=== PATIENT | male | born 1930 | race Caucasian/White ===

== ENCOUNTER → 2016-08-16 12:41 | Emergency (ER) | payer MEDICARE, BC ==
--- NOTE | ~2016-08-16 | CT71 ---
[facility] A Service [facility] RADIOLOGY TEXT RESULTS PATIENT: JUDSON ELIZALDE LOCATION: [facility] : [birth year] UNIT #: [id number] AGE: [address]: Narinder Castro SEX: M ORDER DR: [id number] [address] [address] [id number] E MR#: [id number] Acc #: [id number] NAME: JUDSON ELIZALDE : 1930 SEX: M STUDY DATE/TIME: 08/16/2016 11:46 UNIT: [id number] ROOM: STUDY DESCRIPTION: CT Head Wo Contrast Attending Physician: Narinder Castro Ordering Physician: [facility] MEDICAL IMAGING REPORT This report is preliminary unless electronic signature is present EXAM CT head without contrast 08/16/2016 INDICATIONS Right ear pain for [address] head without contrast. This CT exam was performed with one or more of the following radiation dose reduction techniques: automatic exposure control, adjustment of mA and/or kV according to patient size, and iterative reconstruction. COMPARISON CT head dated 03/04/2015. FINDINGS There is no acute intracranial hemorrhage, mass lesion, or acute infarct. There is generalized global cerebral atrophy and chronic small vessel changes. Ventricles and basilar cisterns are unchanged. There is a septum cavum pellucidum. No extraaxial collections. Visualized paranasal sinuses are clear. No mastoid effusion. IMPRESSION 1. No acute findings. 2. Generalized atrophy and chronic small vessel changes. Dictated by... Jay Benson M.D. THIS IS AN ELECTRONICALLY VERIFIED REPORT Jay Benson M.D. at 08/17/2016 8:19 AM [facility] A Service [facility] RADIOLOGY TEXT RESULTS PATIENT: JUDSON ELIZALDE LOCATION: [facility] : [birth year] UNIT #: [id number] AGE: [address]: Narinder Castro SEX: M ORDER DR: Josy TD: 08/16/2016 17:47 JOB #: [id number] MEDICAL IMAGING REPORT COPY
[~2016-08-16 12:41] MED LIST: ACTOS; AMIODARONE; APRESOLINE; CARVEDILOL25 MG PO; COREG; COREG PO; COUMADIN; COUMADIN PO; FINASTERIDE5 M1 PO; GABAPENTIN300 MG PO; GLYBURIDE MICRON3 MG PO; GLYNASE; HYDROCODON-ACE1 EAC5 PO; HYDROCODONE-APA1 T41 PO; IRON PO; KCL PO; LASIX PO; LEVAQUIN PO; LIPITOR; LISINOPRIL; LISINOPRIL30 MG PO; METAMUCIL1 PKT PO; MOBIC PO; NEURONTIN PO; PANTOPRAZOLE SO40 MG PO; PHENERGAN25 MG PO; PRILOSEC PO; PRINIVIL40 MG PO; PROSCAR5 MG; REFRESH EYE DRO50 E1 OP; RESTASIS32 EA OP; VICODIN 5/500 T1 TAB PO; WARFARIN SODIUM6 M1 PO; ZANTAC; ZOFRANODT PO; ZOLOFT PO; ZYLOPRIM; [UNRECOGNIZED DRUG - OTHER]
== END | disposition home or self-care (01) ==
LOC: CFTX 12:41
DX: H92.01 Otalgia, right ear (principal); I11.0 Hypertensive heart disease with heart failure; I50.9 Heart failure, unspecified; E11.9 Type 2 diabetes mellitus without complications; F03.90 Unspecified dementia, unspecified severity, without behavioral disturbance, psychotic disturbance, mood disturbance, and anxiety; Z86.79 Personal history of other diseases of the circulatory system
CPT/HCPCS: 70450; 99284

== ENCOUNTER 2016-09-06 10:36 | Emergency (ER) | payer MEDICARE, BC ==
[2016-09-06 10:50] LABS: PARTIAL THROMBOPLASTIN TIME 43.1 SECONDS (23.5-31.3); PROTHROMBIN TIME (PATIENT) 32.8 SECONDS (9.6-11.5)
== END 2016-09-06 12:45 | disposition home or self-care (01) ==
LOC: CED 10:36
PROVIDERS: Emergency Medicine
DX: H66.91 Otitis media, unspecified, right ear (principal)
CPT/HCPCS: 36415; 84484; 85610; 85730; 99283

== ENCOUNTER 2016-10-05 20:16 | Emergency (ER) | payer MEDICARE, BC ==
--- NOTE | ~2016-10-05 | CR72 ---
[facility] A Service of [facility] RADIOLOGY TEXT RESULTS PATIENT: JUDSON ELIZALDE LOCATION: [facility] : [birth year] UNIT #: [id number] AGE: [address]: Jeff Brody MD SEX: M ORDER DR: [id number] [facility] [address] [place], [place] [address] [id number] E MR#: [id number] #: [id number] NAME: JUDSON ELIZALDE. : 1930 SEX: M STUDY DATE/TIME: 10/05/2016 19:49 UNIT: HANH ROOM: STUDY DESCRIPTION: CR Chest Single View Portable Attending Physician: Jeff Brody M.D. Ordering Physician: Jeff Brody M.D. MEDICAL IMAGING REPORT This report is preliminary unless electronic signature is present EXAM Portable chest x-ray 10/05/2016 HISTORY Shortness of air. TECHNIQUE AP radiograph of the chest is presented. COMPARISON STUDIES 06/06/2014. FINDINGS Dual-lead cardiac pacemaker unchanged. Stable cardiac enlargement. Lung volumes low. Central bronchovascular crowding. Given the low lung volumes, the central pulmonary vessels are mildly prominent suggesting some degree of vascular congestion. There is a small left pleural effusion. Patchy and band-like airspace disease in the left mid to lower lung zone is nonspecific and may include components of atelectasis and pneumonia. Followup to resolution is recommended. There is no right effusion seen. No pneumothorax. Stable slight elevation of the left hemidiaphragm. Dictated by... Mikel Chua M.D. THIS IS AN ELECTRONICALLY VERIFIED REPORT Mikel Chua M.D. at 10/06/2016 11:06 PM CHINEDU/lalita TD: 10/05/2016 22:55 [facility] A Service [facility] RADIOLOGY TEXT RESULTS PATIENT: JUDSON ELIZALDE LOCATION: [facility] : [birth year] UNIT #: [id number] AGE: [address]: Jeff Brody MD SEX: M ORDER DR: JOB #: [id number] MEDICAL IMAGING REPORT Page 1 of 1 COPY
--- NOTE | ~2016-10-05 | EKG ---
PATIENT: JUDSON ELIZALDE UNIT #: [id number] Ventricular Rate: 78 BPM Atrial Rate: 72 BPM QRS Duration: 210 ms Q-T Interval: 474 ms QTC Calculation(Bezet): 540 ms Calculated R [place]: -59 degrees Calculated T [place]: 115 degrees Diagnosis Line: Ventricular-paced rhythm Diagnosis Line: Abnormal ECG Diagnosis Line: No previous ECGs available Diagnosis Line: Confirmed by MAUREEN GAMEZ MD ([id number]) on Diagnosis Line: 10/05/2016 10:33:02 PM INTERPRETING MD: AMIRAH
[2016-10-05 19:51] LABS: BASOPHIL% 0.6 % (0-2.5); EOSINOPHIL# 0.3 X10e3 (0-0.7); EOSINOPHIL% 3.8 % (0.0-7.0); HEMOGLOBIN 12.5 gm/dL (13.0-16.0); LYMPHOCYTE# 1.2 X10e3 (1.0-3.5); LYMPHOCYTE% 15.2 % (17.0-45.0); MEAN CELL VOLUME 86.1 FL (83-96); MEAN CORPUSCULAR HEMOGLOBIN 29.1 PG (28-34); MEAN CORPUSCULAR HGB CONC 33.7 g/dL (30-36); MEAN PLATELET VOLUME 8.1 FL (6.5-11.5); MONOCYTE# 0.7 X10e3 (0-1.0); MONOCYTE% 8.8 % (3.0-12.0); NEUTROPHIL# 5.7 X10e3 (1.5-7.1); NEUTROPHIL% 71.6 % (40-75); PLATELET COUNT 224 X10e3 (140-420); RED BLOOD COUNT 4.29 X10e (3.90-5.60); RED CELL DISTRIBUTION WIDTH 13.5 % (11.0-15.5)
[2016-10-05 19:58] LABS: DIFF IND NO
[2016-10-05 20:00] LABS: POC - CKMB 1.9 ng/mL (0.0-7.9); POC - TROPONIN <0.05 ng/mL (<=0.05)
[2016-10-05 20:13] LABS: INR 3.4; PROTHROMBIN TIME (PATIENT) 37.2 SECONDS (9.6-11.5)
[2016-10-05 20:14] LABS: ALBUMIN SERUM 3.4 g/dL (3.5-5.0); BILIRUBIN, DIRECT 0.2 mg/dL (0.0-0.2); BILIRUBIN,INDIRECT 0.3 mg/dL (0.0-0.9); BILIRUBIN,TOTAL 0.5 mg/dL (0.2-2.0); BUN/CREATININE RATIO 21.25; CALCIUM SERUM 8.7 mg/dL (8.4-10.2); CREATININE SERUM 0.8 mg/dL (0.6-1.4); GLOM FILT RATE Estimated 80.4 mL/min (>60); POTASSIUM 3.5 mmol/L (3.5-5.1); PROTEIN TOTAL SERUM 7.1 g/dL (6.0-8.3)
[2016-10-05 21:25] LABS: URINE SOURCE CLEAN CATCH
[2016-10-05 21:30] LABS: URINE APPEARANCE CLEAR; URINE BILIRUBIN NEG (NEG); URINE BLOOD NEG (NEG); URINE COLOR YELLOW; URINE GLUCOSE NEG (NEG); URINE KETONE TRACE (NEG); URINE LEUKOCYTE ESTERASE NEG (NEG); URINE NITRATE NEG (NEG); URINE PROTEIN NEG (NEG); URINE SPECIFIC GRAVITY 1.027 (1.003-1.035)
[2016-10-05 21:34] LABS: CULTURE INDICATED? NO
[2016-10-05 22:06] LABS: POC - CKMB <1.0 ng/mL (0.0-7.9); POC - TROPONIN <0.05 ng/mL (<=0.05)
== END 2016-10-05 23:35 | disposition home or self-care (01) ==
LOC: CED 20:16
PROVIDERS: Emergency Medicine
DX: R06.02 Shortness of breath (principal); E11.9 Type 2 diabetes mellitus without complications; I10 Essential (primary) hypertension; Z95.0 Presence of cardiac pacemaker; F17.200 Nicotine dependence, unspecified, uncomplicated; Z79.899 Other long term (current) drug therapy
CPT/HCPCS: 36415; 71010; 80048; 80076; 81003; 82553; 82947; 83880; 84484; 85025; 85610; 87040; 93005; 96360; 99284; J0696

== ENCOUNTER 2016-10-21 18:38 | Emergency (ER) | payer MEDICARE, BC ==
--- NOTE | ~2016-10-21 | EKG ---
PATIENT: JUDSON ELIZALDE UNIT #: [id number] Ventricular Rate: 74 BPM Atrial Rate: 83 BPM QRS Duration: 194 ms Q-T Interval: 476 ms QTC Calculation(Bezet): 528 ms Calculated R [place]: -53 degrees Calculated T [place]: 111 degrees Diagnosis Line: Ventricular-paced rhythm Diagnosis Line: Abnormal ECG Diagnosis Line: When compared with ECG of 05-OCT-2016 19:08, Diagnosis Line: Vent. rate has decreased BY 4 BPM Diagnosis Line: Confirmed by TIFFANY MERINO MD ([id number]) on 10/22/2016 Diagnosis Line: 8:07:38 PM INTERPRETING MD: WILBER MONSON
--- NOTE | ~2016-10-21 | CR72 ---
[facility] A Service of [facility] RADIOLOGY TEXT RESULTS PATIENT: JUDSON ELIZALDE LOCATION: [facility] : [birth year] UNIT #: [id number] AGE: [address]: Chino Ayoub MD SEX: M ORDER DR: [id number] [facility] [address] [place], [place] [address] [id number] E MR#: [id number] Acc #: [id number] NAME: JUDSON ELIZALDE. : 1930 SEX: M STUDY DATE/TIME: 10/21/2016 21:55 UNIT: [facility] ROOM: STUDY DESCRIPTION: CR Chest Single View Portable Attending Physician: Chino Ayoub M.D. Ordering Physician: Chino Ayoub M.D. MEDICAL IMAGING REPORT This report is preliminary unless electronic signature is present EXAM Portable chest HISTORY Cough and shortness of air for 1 month. FINDINGS Moderately dense left perihilar infiltrate or atelectasis has increased slightly compared to 10/05/2016. Elevation left hemidiaphragm with probable small left pleural effusion. Low lung volumes. Stable cardiac enlargement. Right lung is clear. Mild right upper thoracic curve. Dictated by... Shad Pang M.D. THIS IS AN ELECTRONICALLY VERIFIED REPORT Shad Pang M.D. at 10/22/2016 11:32 PM DFL/kemal TD: 10/22/2016 02:40 JOB #: [id number] MEDICAL IMAGING REPORT Page 1 of 1 COPY
[2016-10-21 21:25] LABS: BASOPHIL% 0.3 % (0-2.5); EOSINOPHIL# 0.3 X10e3 (0-0.7); EOSINOPHIL% 3.5 % (0.0-7.0); HEMOGLOBIN 13.2 gm/dL (13.0-16.0); LYMPHOCYTE# 1.4 X10e3 (1.0-3.5); LYMPHOCYTE% 15.2 % (17.0-45.0); MEAN CELL VOLUME 86.5 FL (83-96); MEAN CORPUSCULAR HEMOGLOBIN 28.6 PG (28-34); MEAN PLATELET VOLUME 8.2 FL (6.5-11.5); MONOCYTE# 0.7 X10e3 (0-1.0); MONOCYTE% 7.9 % (3.0-12.0); NEUTROPHIL# 6.8 X10e3 (1.5-7.1); NEUTROPHIL% 73.1 % (40-75); PLATELET COUNT 273 X10e3 (140-420); RED BLOOD COUNT 4.62 X10e (3.90-5.60); RED CELL DISTRIBUTION WIDTH 13.2 % (11.0-15.5); WHITE BLOOD COUNT 9.4 X10e3 (4.0-10.5)
[2016-10-21 21:26] LABS: DIFF IND NO
[2016-10-21 21:51] LABS: ALBUMIN SERUM 3.7 g/dL (3.5-5.0); ALKALINE PHOSPHATASE 81 U/L (32-92); ALT (SGPT) 14 U/L (10-40); AST (SGOT) 16 U/L (10-42); BILIRUBIN, DIRECT 0.1 mg/dL (0.0-0.2); BILIRUBIN,INDIRECT 0.5 mg/dL (0.0-0.9); BILIRUBIN,TOTAL 0.6 mg/dL (0.2-2.0); BLOOD UREA NITROGEN 18 mg/dL (9-23); BUN/CREATININE RATIO 25.71; CARBON DIOXIDE 26 mmol/L (22-31); CHLORIDE 99 mmol/L (100-111); CREATININE SERUM 0.7 mg/dL (0.6-1.4); GLOM FILT RATE Estimated 84.3 mL/min (>60); GLUCOSE FASTING 266 mg/dL (70-110); POTASSIUM 3.8 mmol/L (3.5-5.1); PROTEIN TOTAL SERUM 7.3 g/dL (6.0-8.3); SALICYLATE <4.0 mg/dL; SODIUM 134 mmol/L (135-145)
[2016-10-21 22:13] LABS: POC - CKMB 1.9 ng/mL (0.0-7.9); POC - TROPONIN <0.05 ng/mL (<=0.05)
== END 2016-10-21 22:55 | disposition home or self-care (01) ==
LOC: CED 18:38
PROVIDERS: Emergency Medicine
DX: H92.01 Otalgia, right ear (principal); R06.02 Shortness of breath; N28.9 Disorder of kidney and ureter, unspecified; I10 Essential (primary) hypertension; J44.9 Chronic obstructive pulmonary disease, unspecified; F03.90 Unspecified dementia, unspecified severity, without behavioral disturbance, psychotic disturbance, mood disturbance, and anxiety; E11.9 Type 2 diabetes mellitus without complications
CPT/HCPCS: 36415; 71010; 80048; 80076; 82553; 84484; 85025; 93005; 99283; G0480